=== PATIENT | male | born 1950 | race Caucasian/White ===

== ENCOUNTER 2024-11-25 07:11 | Day surgery (SDC) | payer OTHER ==
--- NOTE | 2024-11-22 13:47 | EKG ---
[facility] Test Date: 2024-11-22 Test Time: 13:44:45 Pat Name: JESSICA KEITA Department: [facility] Room: Gender: Male Head Pumper: [id number] : [id number] Requested By: CHAD STEWART Order Number: [id number] Reading MD: Measurements Intervals [place] Rate: 84 P: 36 PA: 210 QRS: -3 QRSD: 99 T: 30 QT: 372 QTc: 440 Interpretive Statements Sinus rhythm No previous ECG available for comparison Please click the below link to view image of tracing.
[2024-11-22 13:51] VITALS: BP 129/69; PULSE 83; RESP 18; TEMP 98
[2024-11-22 13:54] LABS: BASOPHILS # (AUTO) 0.03 K/uL (0.00-0.20); BASOPHILS % (AUTO) 0.4 % (0.0-5.0); EOSINOPHILS # (AUTO) 0.24 K/uL (0.00-0.70); EOSINOPHILS % (AUTO) 3.3 % (0.0-8.0); HEMATOCRIT 36.9 % (42-54); IMMATURE GRANULOCYTE ABSOLUTE 0.03 K/uL (0-1); LYMPHOCYTES # (AUTO) 1.5 K/uL (1.0-4.8); LYMPHOCYTES % (AUTO) 21.2 % (21.0-51.0); MEAN CORPUSCULAR HGB CONC 34.7 g/dL (32.0-36.0); MEAN CORPUSCULAR VOLUME 86.6 fL (79-99); MONOCYTES # (AUTO) 0.5 K/uL (0.1-1.0); MONOCYTES % (AUTO) 7.2 % (3.0-13.0); NEUTROPHILS # (AUTO) 4.9 K/uL (1.8-7.7); NEUTROPHILS % (AUTO) 67.5 % (40.0-77.0); PLATELET COUNT (AUTO) 150 K/uL (130-400); RED BLOOD CELL COUNT(AUTO) 4.26 MIL/uL (4.50-6.20); WHITE BLOOD COUNT (AUTO) 7.3 K/uL (4.8-10.8)
[2024-11-22 14:03] LABS: CREATININE 1.3 mg/dL (0.5-1.3); POTASSIUM 4.4 mmol/L (3.5-5.1)
[2024-11-25] VITALS (14 sets, daily range): BP systolic 116–160; BP diastolic 64–86; PULSE 74–84; RESP 13–18; TEMP 97–97.3
[~2024-11-25] VITALS: Ht 180.3 cm; Wt 87.0 kg
[~2024-11-25 07:11] MED LIST: BETA1TAB15 PO; FERR324T4 PO; LISI10TA24 PO; METF-446 PO; MULTIVITAMIN PO; PROBIOTIC PO; ROSU10TA72 PO; SEMA1PEN3 SQ; VITAMIN B12 PO
[2024-11-25] MEDS ORDERED: SCOPOLAMINE HYDROBROMIDE 1 EACH ADH..PATCH TD ONE (07:34)
[2024-11-25] MEDS ORDERED: acetaMINOPHEN 325 MG TAB ONE (07:34)
[2024-11-25] MEDS ORDERED: FAMOTIDINE 20MG VIAL IV ONE (07:34)
[2024-11-25] MEDS ORDERED: LIDOCAINE PF 100MG/5ML (2%) SYRINGE 5ML ONE (07:40)
[2024-11-25] MEDS ORDERED: proPOFol 10 MG/ML 20ML VIAL IV ONE (07:41)
[2024-11-25] MEDS ORDERED: rocuRONium bROMide 10MG/1ML 5ML VL ONE (07:41)
[2024-11-25] MEDS ORDERED: FENTanyl CITRate PF 50 MCG/1 ML 2ML VIAL ONE (07:41)
[2024-11-25] MEDS ORDERED: ROPivacaine 0.5% 5MG/ML 30ML ONE (07:43)
[2024-11-25] MEDS ORDERED: ketaMINE 50MG/ML SYRINGE 50 MG/ML DISP.SYRIN ONE (07:43)
[2024-11-25] MEDS ORDERED: 0.9%NACL 1000ML 1,000 ML IV SCH (08:00)
[2024-11-25] MEDS: 0.9%NACL 1000ML 1,000 ML IV ONE (08:03)
[2024-11-25] MEDS: ceFAZolin SODIUM 2 GM VIAL ONE (08:03)
[2024-11-25] MEDS ORDERED: ondanSETRON 4MG INJ ONE (09:03)
[2024-11-25] MEDS ORDERED: dexaMETHasone SOD PHOSPHATE 10MG/ML 1ML VIAL ONE (09:03)
[2024-11-25] MEDS ORDERED: GLYCOPYRROLATE 0.2 MG/ML 5 ML VIAL ONE (09:14)
[2024-11-25] MEDS ORDERED: NEOSTIGMINE METHYLSULFATE 1MG/ML IV ONE (09:14)
[2024-11-25] MEDS ORDERED: ePHEDrine SULFate 50 MG/ML AMPULE ONE (09:20)
[2024-11-25] MEDS: EPINEPHrine PF 1MG (1:1,000) 1 MG/ML AMP ONE (10:49)
[2024-11-25] MEDS ORDERED: MELO-106 PO (11:14)
[2024-11-25] MEDS ORDERED: HYDR-4060 PO (11:14)
--- NOTE | 2024-11-25 11:18 | OP ---
Operative Note: DATE OF PROCEDURE: 11/25/24 SURGEON: CHAD STEWART MD CATERING ASSISTANT: [Kayla Camacho CFA] ANESTHESIA: [General plus regional block] ANESTHESIOLOGIST/SEWING SUPERVISOR: [Heena Avalos CRNA] PREOPERATIVE DIAGNOSIS: [Left shoulders subacromial impingement, acromioclavicular joint arthrosis with impingement.] POSTOPERATIVE DIAGNOSIS: [Same plus degenerative tear of the anterior glenoid labrum. Intra-articular stable tear supraspinatus of less than 10% thickness.] PROCEDURE: [Left shoulder diagnostic arthroscopy, labral debridement, rotator cuff debridement, subacromial decompression and distal clavicle resection] ESTIMATED BLOOD LOSS: [Less than 20 mL] INDICATIONS: [74-year-old male with history of pain to the left shoulder that has not responded to conservative treatment. The MRI shows the presence of a very large osteophytes in the acromioclavicular joint as well as a type 2 acromion. The patient is brought to the operating room for arthroscopic procedure that he understood, risks, benefits and possible complications and agreed to start the consent form.] DESCRIPTION OF PROCEDURE: [After adequate general anesthesia was achieved and regional block obtained the patient was placed in the beach chair position and the left upper extremity was prepped and draped in the usual manner. After identification of the bony landmarks we proceeded to make a small incision in the posterior aspect of the shoulder subacromial area through the skin followed by blunt dissection with the arthroscopic trocar entering into the shoulder joint removing the trocar and applying the arthroscope into the sheath. After inflating the joint with fluid evaluation of the joint revealed normal subscapularis, biceps tendon, glenohumeral joint surfaces as well as infraspinatus. The anterior labrum had a degenerative tear and the supraspinatus had a delamination of the most superficial layer in the articular surface which was minimally loose and stable. After applying an intra-articular cannula through the anterior aspect of the shoulder we were able to debride the labrum to stable tissue and also with the use of the shaver proceeded to debride the small tear of the rotator cuff in this area in the supraspinatus We then proceeded to remove the arthroscope from the joint and after reapplying the trocar into the sheath we redirected it and inserted it into the subacromial space. Once again we switch the trocar for the arthroscope and evaluation of the subacromial space revealed a mild amount of bursal tissue and a 3rd incision was made in the lateral aspect of the subacromial area through the skin and then with a blunt trocar we proceeded to enter this area followed by application of the electrocautery proceeding then to remove most of the bursal tissue opening the subacromial space noticing that there was obvious impingement due to the acromial hypertrophy and the acromioclavicular joint arthrosis present. We then bluntly we entered with the anterior cannula into the subacromial area at the level of the acromioclavicular joint. With the use of the shaver and through the lateral cannula we proceeded to continue cleaning the subacromial space and we finally exposed the rotator cuff and finding the insertion of it noticing to be normal. At this point we proceeded then to start the decompression with the use of the bur starting with the subacromial area removing the tip of the acromion first and then proceeding posteriorly and once completed we then pay attention to the distal end of the clavicle removing the inferior two thirds, switching then the bur to the anterior portal removing the superior third through this side. Once the distal clavicle was resected we then proceeded to remove the debris from the subacromial area then the fluid and the arthroscope. The incisions were then closed with 2-0 Monocryl inverted stitches followed by application of Dermabond to seal the incisions and then they were covered with a small Telfa dressings and OpSite's. The drapes were then removed and the patient was placed in an arm sling. The bed was placed in the supine position and the patient was transferred to a stretcher and taken to recovery room for follow-up by anesthesia. There were no complications during the procedure.] CHAD STEWART MD Nov 25, 2024 11:18
--- NOTE | 2024-11-25 12:00 | NUR ---
REDNESS ARRIVED WITH REDNESS TO CENTER CHEST. DR. STEWART MADE AWARE IN PACU. ARRIVED WITH RED NECK BRUISING AND REDNESS. DR. STEWART MADE AWARE IN PACU.
--- NOTE | 2024-11-25 12:30 | NUR ---
SLING PATIENT WHEELED OUT INTO CAR WITH SLING GIVEN INSTRUCTIONS ON SLING AND IMPORTANCE OF SLING. PATIENT DID NOT PREFER TO WEAR THE SLING ALL DAY OR AT NIGHT.
== END 2024-11-25 12:42 | disposition home or self-care (01) ==
LOC: DAH 07:11
PROVIDERS: ATTEND Orthopaedic Surgery
DX: M75.42 Impingement syndrome of left shoulder (principal); M19.012 Primary osteoarthritis, left shoulder; M75.112 Incomplete rotator cuff tear or rupture of left shoulder, not specified as traumatic; M25.712 Osteophyte, left shoulder; I10 Essential (primary) hypertension; E11.9 Type 2 diabetes mellitus without complications; E78.00 Pure hypercholesterolemia, unspecified; Z82.49 Family history of ischemic heart disease and other diseases of the circulatory system; Z79.899 Other long term (current) drug therapy; Z98.890 Other specified postprocedural states
CPT/HCPCS: 93005; 80048; 85025; 36415; 01630; 29826; 29824; 64415; 82948 ×2; A4663; J7030 ×2; J3490 ×5; J3010; J1100; J2003; J0171; J2704; J2405; J2710; J2795; J0690; A6204; A4930; A4215; A4223; A4222; A4221